=== PATIENT | female | born 1955 | race Caucasian/White ===

== ENCOUNTER 2016-12-26 11:05 | Emergency (ER) | payer BC ==
[2016-12-26] MEDS ORDERED: Albuterol/Ipratropium NEB.SOL* Albuterol 2.5 MG/Ipratropium 0.5 MG 3 ML INH ONE (11:22)
[2016-12-26 11:52] LABS: Hematocrit 40 % (35-47); Hemoglobin 13.9 g/dl (12.0-16.0); Mean Corpuscular HGB Conc 35 g/dl (31-36); Mean Corpuscular Hemoglobin 31 pg (27-31); Mean Corpuscular Volume 89 fL (80-97); Mean Platelet Volume 7 um3 (7.4-10.4); Red Blood Count 4.52 10^6/ul (4.0-5.4); Red Cell Distribution Width 15 % (10.5-15); White Blood Count 7.8 10^3/ul (3.5-10.8)
--- NOTE | 2016-12-26 11:56 | RAD ---
INDICATION: Cough, shortness of breath and night sweats COMPARISON: Most recent comparison chest x-ray May 06, 2015 TECHNIQUE: PA and lateral views of the chest were obtained. FINDINGS: The heart and mediastinum are normal in size and contour. The lungs are grossly clear. There is no evidence of large pleural effusion. There is questionable expansion of the lateral aspect of the ninth right rib and was not definitely seen on the previous chest x-ray. There is no radiographic evidence of free air beneath the diaphragm IMPRESSION: 1. NO RADIOGRAPHIC EVIDENCE OF ACUTE CARDIOPULMONARY DISEASE. 2. QUESTIONABLE EXPANSION OF THE LATERAL NINTH RIB NOT SEEN ON THE MOST RECENT CHEST X-RAY. PLEASE CORRESPOND TO PAIN AT THIS LOCATION AND/OR CLINICAL HISTORY OF NONDISPLACED RIB FRACTURE.
[2016-12-26 12:11] LABS: Albumin 4.2 g/dL (3.2-5.2); BUN/Creatinine Ratio 26.6 (8-20); Calcium 9.7 mg/dL (8.6-10.3); EGFR African American 121.7 (>60); EGFR Non-African American 94.7 (>60); Globulin 3.1 g/dL (2-4); Potassium 3.8 mmol/L (3.5-5.0); Total Bilirubin 0.5 mg/dL (0.2-1.0); Total Protein 7.3 g/dL (6.4-8.9)
--- NOTE | 2016-12-26 12:37 | ED ---
Influenza-Like Illness - HPI Summary HPI Summary: Pt here w/ worsening cough and SOB since URI sx started last week. Nasal congestion, sinus pressure, Rt ear pain (intermittent). Feels hot/sweaty today. H/o COPD - tried albuterol inhaler w/ minimal relief. Gets bronchitis frequently. Denies N/V/D, ab pain, rash, hemoptysis, headache, neck pain. Wasn' t too concerned herself, but co-workers encouraged her to get checked d/t increased coughing. Smokes. - History of Current Complaint Chief Complaint: EDUpperRespComplaint Time Seen by Provider: 12/26/16 11:22 Hx Obtained From: Patient - Allergy/Home Medications Allergies/Adverse Reactions: Allergies Allergy/AdvReac Type Severity Reaction Status Date / Time Adhesive Tape Allergy POON SKIN Verified 12/08/15 09:17 PMH/Surg Hx/FS Hx/Imm Hx Previously Healthy: Yes Endocrine/Hematology History: Denies: Hx Diabetes Comment Only: Hx Thyroid Disease - LEFT THYROIDECTOMY Cardiovascular History: Denies: Hx Hypertension, Hx Pacemaker/ICD Respiratory History: Reports: Hx Asthma - PRN ALBUTEROL, Hx Chronic Obstructive Pulmonary Disease (COPD), Hx Sleep Apnea, Other Respiratory Problems/Disorders - HISTORY OF SINUSITIS GI History: Reports: Hx Gastroesophageal Reflux Disease, Hx Irritable Bowel, Other GI Disorders - HX OF GASTROENTERITIS History: Denies: Hx Renal Disease Musculoskeletal History: Reports: Hx Arthritis - KNEES HIPS, NECK, Hx Tendonitis - RIGHT THUMB, WRIST , ELBOW, Other Musculoskeletal History - DDD-C5/ 6 Sensory History: Reports: Hx Contacts or Glasses Denies: Hx Hearing Aid Opthamlomology History: Reports: Hx Contacts or Glasses Neurological History: Reports: Other Neuro Impairments/Disorders - HOT FLASHES Psychiatric History: Denies: Hx Panic Disorder - Surgical History Surgery Procedure, Year, and Place: LEFT THYROID REMOVED, 1980, [facility] [place] , MULTIPLE LAPAROTOMIES , 1984, 1988 , APPENDECTOMY , 1984 , MULTIPLE OVARIAN CYSTS AND FIBROIDS REMOVED , 1980 , TOTAL HYSTERECTOMY, 2000, [facility] D[facility]CX[facility]. RIGHT KNEE 12/2014, [facility] [place]. Rt KNEE -ARTHROSCOPIC Hx Anesthesia Reactions: No Infectious Disease History: Yes Infectious Disease History: Denies: Traveled Outside the [place] in Last 30 Days - Social History Occupation: Employed Full-time - dietary clerk, [employer] [place] Lives: Alone Alcohol Use: Occasionally Alcohol Amount: 5 WEEKLY Hx Substance Use: No Substance Use Type: Reports: None Hx Tobacco Use: Yes Smoking Status (MU): Current Every Day Smoker Amount Used/How Often: 1/2 PPD X 28 YEARS - Have You Smoked in the Last Year: No Review of Systems Constitutional: Other - see HPI Eyes: Negative ENT: Other - see HPI Cardiovascular: Negative Positive: Shortness Of Breath, Cough - see HPI Gastrointestinal: Negative Positive: no symptoms reported Musculoskeletal: Negative Skin: Negative Neurological: Negative Psychological: Normal All Other Systems Reviewed And Are Negative: Yes Physical Exam Triage Information Reviewed: Yes Vital Signs On Initial Exam: Initial Vitals Temp Pulse Resp BP Pulse Ox 96.7 F 102 17 151/69 96 12/26/16 11:09 12/26/16 11:09 12/26/16 11:09 12/26/16 11:09 12/26/16 11:09 Vital Signs Reviewed: Yes Appearance: Positive: No Pain Distress - coughing intermittently - complete short sentences w/o difficulty but coughs easily, Well-Nourished Skin: Positive: Warm - moist Head/Face: Positive: Normal Head/Face Inspection - sinuses NTTP Eyes: Positive: Normal, EOMI, ERIN, Conjunctiva Clear. Negative: Conjunctiva Inflammed, Discharge ENT: Positive: Hearing grossly normal, Pharyngeal erythema - cobblestoning, Nasal congestion, TMs normal. Negative: Tonsillar swelling, Tonsillar exudate, Trismus, Muffled/hoarse voice Neck: Positive: Supple, Nontender, No Lymphadenopathy Respiratory/Lung Sounds: Positive: Breath Sounds Present - distant - clear. Negative: Rales, Rhonchi, Stridor, Wheezes Cardiovascular: Positive: Normal, RRR, S1, S2. Negative: Murmur, Rub Abdomen Description: Positive: Nontender, Soft Bowel Sounds: Positive: Present Musculoskeletal: Positive: Normal, Strength/ROM Intact Neurological: Positive: Normal, Sensory/Motor Intact, Alert, Oriented to Person Place, Time, CN Intact II-III Psychiatric: Positive: Normal - [place] Coma Scale Coma Scale Total: 15 Diagnostics - Vital Signs Vital Signs Temp Pulse Resp BP Pulse Ox 12/26/16 11:09 96.7 F 102 17 151/69 96 - Laboratory Lab Results: Lab Results 12/26/16 12/26/16 12/26/16 Range/Units 11:40 11:40 11:40 WBC 7.8 (3.5-10.8) 10^3/ul RBC 4.52 (4.0-5.4) 10^6/ul Hgb 13.9 (12.0-16.0) g/dl Hct 40 (35-47) % MCV 89 (80-97) fL MCH 31 (27-31) pg MCHC 35 (31-36) g/dl RDW 15 (10.5-15) % Plt Count 303 (150-450) 10^3/ul MPV 7 L (7.4-10.4) um3 Neut % (Auto) 53.9 (38-83) % Lymph % (Auto) 34.5 (25-47) % [place] % (Auto) 8.4 (1-9) % Eos % (Auto) 2.3 (0-6) % Baso % (Auto) 0.9 (0-2) % Absolute Neuts (auto) 4.2 (1.5-7.7) 10^3/ul Absolute Lymphs (auto) 2.7 (1.0-4.8) 10^3/ul Absolute Monos (auto) 0.7 (0-0.8) 10^3/ul Absolute Eos (auto) 0.2 (0-0.6) 10^3/ul Absolute Basos (auto) 0.1 (0-0.2) 10^3/ul Absolute Nucleated RBC 0 10^3/ul Nucleated RBC % 0 Sodium 140 (133-145) mmol/L Potassium 3.8 (3.5-5.0) mmol/L Chloride 108 (101-111) mmol/L Carbon Dioxide 24 (22-32) mmol/L Anion Gap 8 (2-11) mmol/L BUN 17 (6-24) mg/dL Creatinine 0.64 (0.51-0.95) mg/dL Est GFR ( Amer) 121.7 (>60) Est GFR (Non-Af Amer) 94.7 (>60) BUN/Creatinine Ratio 26.6 H (8-20) Glucose 111 H (70-100) mg/dL Lactic Acid 1.1 (0.5-2.0) mmol/L Calcium 9.7 (8.6-10.3) mg/dL Total Bilirubin 0.50 (0.2-1.0) mg/dL AST 29 (13-39) U/L ALT 26 (7-52) U/L Alkaline Phosphatase 88 (34-104) U/L C-Reactive Protein 43.00 H (< 5.00) mg/L Total Protein 7.3 (6.4-8.9) g/dL Albumin 4.2 (3.2-5.2) g/dL Globulin 3.1 (2-4) g/dL Albumin/Globulin Ratio 1.4 (1-3) Influenza A (Rapid) (Negative) Influenza B (Rapid) (Negative) 12/26/16 Range/Units 12:12 WBC (3.5-10.8) 10^3/ul RBC (4.0-5.4) 10^6/ul Hgb (12.0-16.0) g/dl Hct (35-47) % MCV (80-97) fL MCH (27-31) pg MCHC (31-36) g/dl RDW (10.5-15) % Plt Count (150-450) 10^3/ul MPV (7.4-10.4) um3 Neut % (Auto) (38-83) % Lymph % (Auto) (25-47) % [place] % (Auto) (1-9) % Eos % (Auto) (0-6) % Baso % (Auto) (0-2) % Absolute Neuts (auto) (1.5-7.7) 10^3/ul Absolute Lymphs (auto) (1.0-4.8) 10^3/ul Absolute Monos (auto) (0-0.8) 10^3/ul Absolute Eos (auto) (0-0.6) 10^3/ul Absolute Basos (auto) (0-0.2) 10^3/ul Absolute Nucleated RBC 10^3/ul Nucleated RBC % Sodium (133-145) mmol/L Potassium (3.5-5.0) mmol/L Chloride (101-111) mmol/L Carbon Dioxide (22-32) mmol/L Anion Gap (2-11) mmol/L BUN (6-24) mg/dL Creatinine (0.51-0.95) mg/dL Est GFR ( Amer) (>60) Est GFR (Non-Af Amer) (>60) BUN/Creatinine Ratio (8-20) Glucose (70-100) mg/dL Lactic Acid (0.5-2.0) mmol/L Calcium (8.6-10.3) mg/dL Total Bilirubin (0.2-1.0) mg/dL AST (13-39) U/L ALT (7-52) U/L Alkaline Phosphatase (34-104) U/L C-Reactive Protein (< 5.00) mg/L Total Protein (6.4-8.9) g/dL Albumin (3.2-5.2) g/dL Globulin (2-4) g/dL Albumin/Globulin Ratio (1-3) Influenza A (Rapid) Negative (Negative) Influenza B (Rapid) Negative (Negative) Result Diagrams: 12/26/16 11:40 12/26/16 11:40 Lab Statement: Any lab studies that have been ordered have been reviewed, and results considered in the medical decision making process. Re-Evaluation - Re-Evaluation First Eval Change: Improved - s/p duoneb - distant, faint wheezing heard diffusely now - pt reports breathing is easier, coughing less Flu Symptom Course/Dx - Diagnoses Provider Diagnoses: COPD exacerbation Discharge - Discharge Plan Condition: Stable Disposition: HOME Prescriptions: Albuterol HFA INHALER* [Ventolin HFA Inhaler*] 2 puff INH Q6H PRN #1 mdi PRN Reason: Cough Albuterol/Ipratropium NEB.KEN* [Duoneb (Albuterol 2.5 MG/Ipratropium 0.5 MG)] 1 bottle INH Q6HR PRN #20 bottle PRN Reason: Cough Amoxicillin/Clavulanate TAB* [Augmentin TAB 875*] 875 mg PO BID #19 tab predniSONE TAB* [Deltasone TAB*] 60 mg PO DAILY #12 tab Patient Education Materials: Acute Bronchitis (ED) Referrals: Raudel Santana MD [Primary Care Provider] - Ada Venegas MD [Medical Doctor] - Additional Instructions: Avoid smoking, candles, perfumes, chemical cleansers, etc Humidification Avoid cold air/beverages - drink warm, hot beverages with honey Cough drops PRN Take medication as directed Follow-up with PCP - recommend pulmonology consultation. Contact information provided - call today to schedule an appointment. *If you develop fever, chill, vomiting, shortness of breath, chest pain, bloody cough, return to ED
[2016-12-26] MEDS ORDERED: methylPREDNISolone SOD 40 MG* 1 ML VIAL IM ONE (12:38)
[2016-12-26] MEDS ORDERED: Amoxicillin/Clavulanate TAB* 875 MG PO ONE (12:50)
[2016-12-26 13:45] VITALS: BP 146/70
== END 2016-12-26 13:43 | disposition home or self-care (01) ==
LOC: ED 11:05
DX: J44.1 Chronic obstructive pulmonary disease with (acute) exacerbation (principal); J06.9 Acute upper respiratory infection, unspecified
CPT/HCPCS: 36415; 71020; 80053; 83605; 85025; 86140; 87502; 99283; A9270-GY; J2920